=== PATIENT | female | born 1990 | race Caucasian/White ===

== ENCOUNTER 2016-11-01 16:32 | Emergency (ER) | payer SELFPAY ==
[2016-11-01 17:14] VITALS: BP 111/85
[2016-11-01] MEDS ORDERED: Dexamethasone Sodium Phos 4 mg/mL Vial IM STA (18:17)
[2016-11-01] MEDS ORDERED: Acetaminophen 500 MG TAB ONE (18:33)
[2016-11-01] MEDS ORDERED: Dexamethasone Sodium Phos 10 mg/mL PF Vial ONE (18:33)
--- NOTE | 2016-11-01 18:51 | ED Physician Chart ---
Chief Complaint/HPI - Patient Information Date Seen:: 11/01/16 Time Seen:: 16:40 Chief Complaint:: fever History of Present Illness:: 26-year-old female, otherwise healthy, complains of acute, constant, moderate, fever 2 days. Has associated sore throat. Allergies:: Allergies Allergy/AdvReac Type Severity Reaction Status Date / Time No Known Allergies Allergy Verified 11/01/16 18:32 Vitals:: Vital Signs - 8 hr 11/01/16 11/01/16 17:13 17:18 Temp 101.4 F RR 107 BP 111/85 111/85 Historian:: Patient Review:: Nurse's Note Reviewed Review of Systems - Review of Systems Other: Complete system review otherwise unremarkable except as noted in HPI. Past Medical History - Past Medical History Past Medical History: No significant medical hx Family History: None Social History: Non Smoker, No Alcohol, No Drug Use, Employed Surgical History: None Psychiatricy History: None Medication: None Family Medical History - Family Member Mother Ethnicity: Hx Family Cancer: No Hx Family Congestive Heart Failure: No Hx Family Hypertension: No Hx Family Diabetes: No Hx Family Seizures: No Hx Family HIV: No Hx Family Hepatitis: No Hx Family Tuberculosis: No Physical Exam - Physical Examination Other:: INITIAL VITAL SIGNS: Reviewed by me GENERAL: Alert and interactive. No acute distress HEAD: Head is normocephalic and atraumatic EYES: EOMI. . No scleral icterus. No conjunctival injection ENT: Tonsils are +2 edematous with slight exudate NECK: Supple. There is cervical adenopathy greater left than right. Full range of motion RESPIRATORY: No tachypnea. Rigoberto respiratory phase bilaterally. No wheezing , rales, or rhonchi CV: Regular rate and rhythm. No murmurs, rubs, or gallops ABDOMEN: Soft, non-distended, non-tender. No guarding. No rebound. No masses. EXTREMITIES: No deformity. No cyanosis. No edema. SKIN: Warm and dry. No obvious rashes. NEUROLOGIC: Alert and oriented. Face is symmetric. Speech is normal. Moves all extremities equally. Motor and sensory distally intact. ED Septic Shock - . Is Septic Shock (SBP<90, OR Lactate>4 mmol\L) present?: No - <6hrs of presentation: Vital Signs: Vital Signs - 8 hr 11/01/16 11/01/16 17:13 17:18 Temp 101.4 F RR 107 BP 111/85 111/85 Reassessment (Disposition) - Reassessment Reassessment:: Patient has tonsillitis/pharyngitis. Prescribed antibiotics. Gave intramuscular Decadron and Toradol. Patient has some central relief here. Provided prescriptions for analgesics and antitussive as well. Follow-up with PCP 1-2 days. Gave return to ER precautions. Patient understands and agrees the plan. Reassessment Condition:: Improved - Diagnosis Diagnosis:: Pharyngitis, acute Bronchitis, acute - Aftercare/Follow up Instructions Aftercare/Follow-Up Instructions:: Counseled pt regarding lab results/diagnosis & need follow up, Refer to Discharge Instructions Medication Prescribed:: Azithromycin Ibuprofen Phenergan with codeine Prednisone - Patient Disposition Discharge/Transfer:: Home Time:: 19:04 Condition at Disposition:: Improved ED Discharge Plan - Patient Disposition Admit/Discharge/Transfer: PT DISCHARGED HOME Condition at Disposition: Improved Prescriptions: Promethazine HCl/Codeine [Prometh-Codein 6.25-10 mg/5 ml] 5 ml PO Q4HR #0 syrup Ibuprofen 600 mg PO Q8HR #0 tablet Azithromycin 600 mg PO DAILY #0 tablet Prednisone 10 mg PO DAILY #0 tab.ds.pk Instructions: Viral and Bacterial Pharyngitis Accepting Physician: , Primary [Other] Forms: Work Release Form
== END 2016-11-01 19:25 | disposition home or self-care (01) ==
LOC: ER 16:32
DX: J02.9 Acute pharyngitis, unspecified (principal); J20.9 Acute bronchitis, unspecified
CPT/HCPCS: 99284; 96372 ×2; J1885; Z7502; Z7610